=== PATIENT | male | born 1960 | race Caucasian/White ===

== ENCOUNTER 2020-07-28 16:45 | Emergency (ER) | payer MEDICAID, OTHER ==
[~2020-07-28] VITALS: Ht 167.6 cm; Wt 60.4 kg
--- NOTE | 2020-07-28 17:00 | NUR ---
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
--- NOTE | 2020-07-28 18:07 | NUR ---
TOUR AGENT: PT TO ROOM FROM LOBBY VIA WHEELCHAIR
--- NOTE | 2020-07-28 18:22 | NUR ---
PT REPORT FROM YADIRA OLIVAS RN. PT CARE TO BE ASSUMED.
[2020-07-28] MEDS ORDERED: MORPHINE SULFATE 4 MG/ML, 1ML IVPush PRN (18:30)
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
[2020-07-28] MEDS ORDERED: MORPHINE SULFATE 4 MG/ML, 1ML ONE (18:44)
--- NOTE | 2020-07-28 18:58 | NUR ---
PT REFUSING MORPHINE, AT THIS TIME. WILL NOTIFY ERP.
--- NOTE | 2020-07-28 19:03 | NUR ---
LAST ORAL INTAKE 1630
[2020-07-28] MEDS ORDERED: PROPOFOL 0 ML IV ONE (19:18)
[2020-07-28] MEDS ORDERED: PROPOFOL 10 MG/ML, 20ML ONE (19:19)
[2020-07-28] MEDS ORDERED: PROPOFOL 10 MG/ML, 20ML IVPush ONE (19:30)
--- NOTE | 2020-07-28 19:50 | NUR ---
CONSENT SIGNED PER PT. EKG AT BS.
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
--- NOTE | 2020-07-28 19:57 | NUR ---
CRASH CART TO ROOM
--- NOTE | 2020-07-28 20:53 | NUR ---
DR WAGNER, DR SANTOS AT FOR FX REDUCTION. DOCUMENTATION TO BE CONTINUED ON PROCEDURAL SEDATION FORM.
--- NOTE | 2020-07-28 21:25 | NUR ---
PT A&OX4. REPORTS MINOR ANKLE PAIN. O2 DC'D. SIDE RAILS UP X2. MONITORING CONTINUING.
--- NOTE | 2020-07-28 21:43 | NUR ---
TO CT PER LON
--- NOTE | 2020-07-28 22:01 | NUR ---
report recived from emily rodriguez. pt resting in [facility], back from ct scan, stating having some pain at this time
[2020-07-28 22:39] VITALS: BP 160/96
--- NOTE | 2020-07-28 22:49 | NUR ---
IV D/C WITH TIP INTACT, PT GETTING READY, ABLE TO AMBULATE WITH CRUTCHES, PT STATES FRIEND IS AT HOME AND WILL HELP TAKE CARE OF HIM, WILL PROVIDE TAXI VOUCHER TO GET HOME
== END 2020-07-28 23:18 | disposition home or self-care (01) ==
LOC: ED 18:19
DX: S82.842A Displaced bimalleolar fracture of left lower leg, initial encounter for closed fracture (principal); S93.315A Dislocation of tarsal joint of left foot, initial encounter; R94.31 Abnormal electrocardiogram [ECG] [EKG]; Z88.0 Allergy status to penicillin; V19.9XXA Pedal cyclist (driver) (passenger) injured in unspecified traffic accident, initial encounter; Y93.89 Activity, other specified; Y92.828 Other wilderness area as the place of occurrence of the external cause; Y99.8 Other external cause status
CPT/HCPCS: 27840; 93005; 99152; 99285